=== PATIENT | female | born 1990 | race Hispanic/Latino ===

== ENCOUNTER 2020-01-09 07:25 | Day surgery (SDC) | payer BC ==
[2020-01-04 10:15] LABS: BASOPHILS % (AUTO) 0.5 % (0.0-5.0); EOSINOPHILS % (AUTO) 4.3 % (0.0-8.0); HEMATOCRIT 42.9 % (36-48); LYMPHOCYTES % (AUTO) 21.2 % (21.0-51.0); MEAN CORPUSCULAR HEMOGLOBIN 30.9 pg (27.0-33.0); MEAN CORPUSCULAR VOLUME 90.9 fL (79-99); MONOCYTES % (AUTO) 4.3 % (3.0-13.0); NEUTROPHILS % (AUTO) 69.3 % (40.0-77.0); PLATELET COUNT (AUTO) 227 K/uL (130-400); RED BLOOD CELL COUNT(AUTO) 4.72 MIL/uL (4.00-5.50); RED CELL DISTRIBUTION WIDTH 11.7 % (11.0-15.5); WHITE BLOOD COUNT (AUTO) 9.5 K/uL (4.8-10.8)
[2020-01-04 10:31] LABS: ALBUMIN 4.1 g/dL (3.5-5.0); BILIRUBIN,TOTAL 0.8 mg/dL (0.2-1.0); CREATININE 1.4 mg/dL (0.5-1.5); TOTAL PROTEIN, SERUM 7.7 g/dL (6.0-8.3)
[2020-01-08] MEDS: CEFAZOLIN SODIUM 1 GM VIAL IVP SCH (12:45)
[2020-01-08 13:01] VITALS: BP 152/97
[~2020-01-09] VITALS: Ht 171.4 cm; Wt 105.5 kg
[2020-01-09] VITALS (16 sets, daily range): BP systolic 119–142; BP diastolic 71–88
[~2020-01-09 07:25] MED LIST: CEFAZOLIN SODIUM 1 GM VIAL IVP SCH
[2020-01-09] MEDS ORDERED: LACTATED RINGERS 1000ML 1,000 ML IV ONE (07:37)
[2020-01-09] MEDS ORDERED: BUPIVACAINE/PF 0.5% 30ML VIAL ONE (08:18)
[2020-01-09] MEDS ORDERED: MIDAZOLAM HCL 1 MG/ML 2ML VIAL ONE (09:27)
[2020-01-09] MEDS ORDERED: FENTANYL CITRATE PF 50 MCG/1 ML 5ML AMP IV ONE (09:27)
[2020-01-09] MEDS ORDERED: ONDANSETRON HCL 4 MG/2 ML VIAL ONE (09:28)
[2020-01-09] MEDS ORDERED: ROCURONIUM 10MG/1ML SYR 10 MG/ML ML ONE (09:30)
[2020-01-09] MEDS ORDERED: PROPOFOL 10 MG/ML 20ML VIAL IV ONE (09:30)
[2020-01-09] MEDS: CEFAZOLIN SODIUM 1 GM VIAL IVP SCH (09:38)
[2020-01-09] MEDS ORDERED: NEOSTIGMINE 5MG/5ML SYR IV ONE (10:05)
[2020-01-09] MEDS ORDERED: GLYCOPYRROLATE 1 MG/5 ML SYRINGE ONE (10:05)
[2020-01-09] MEDS ORDERED: EPHEDRINE SULFATE 50 MG/ML AMPULE ONE (10:10)
--- NOTE | 2020-01-09 11:20 | NUR ---
DAY PT ARRIVAL PT IN FROM HOLDING IN O APPARENT DISTRESS DRESSING TO LEFT FLANK CDI.
--- NOTE | 2020-01-09 12:20 | NUR ---
DAY PT DC PT APPEARS IN DISTRESS, DRESSING REMAINS CLEAR AND DRY. TAKEN TO FRONT ER LOBBY IN WHEELCHAIR.
== END 2020-01-09 12:10 | disposition home or self-care (01) ==
LOC: DAH 07:25
PROVIDERS: ATTEND Student in an Organized Health Care Education/Training Program
DX: D17.1 Benign lipomatous neoplasm of skin and subcutaneous tissue of trunk (principal); Z20.828 Contact with and (suspected) exposure to other viral communicable diseases
CPT/HCPCS: 22903; 36415; 80053; 84703; 85025; A4215; A4221; A4222; A4223; A4663; A6260; C9803; J0690; J2250; J2405; J2704; J2710; J3010; J3490 ×3; J7120 ×2; U0003

== ENCOUNTER 2022-05-14 14:31 | Emergency (ER) | payer BC ==
[~2022-05-14] VITALS: Ht 172.7 cm; Wt 104.3 kg
[2022-05-14 14:32] VITALS: BP 166/99
[2022-05-14 16:20] LABS: BASOPHILS % (AUTO) 0.7 % (0.0-5.0); EOSINOPHILS % (AUTO) 6.4 % (0.0-8.0); HEMATOCRIT 42.1 % (36-48); LYMPHOCYTES % (AUTO) 24.4 % (21.0-51.0); MEAN CORPUSCULAR HEMOGLOBIN 29.7 pg (27.0-33.0); MONOCYTES % (AUTO) 7.7 % (3.0-13.0); NEUTROPHILS % (AUTO) 60.6 % (40.0-77.0); PLATELET COUNT (AUTO) 257 K/uL (130-400); RED BLOOD CELL COUNT(AUTO) 4.68 MIL/uL (4.00-5.50); RED CELL DISTRIBUTION WIDTH 12.1 % (11.0-15.5); WHITE BLOOD COUNT (AUTO) 8.9 K/uL (4.8-10.8)
[2022-05-14 16:30] LABS: CREATININE 0.7 mg/dL (0.5-1.5); POTASSIUM 3.3 mmol/L (3.5-5.1)
[2022-05-14] MEDS ORDERED: KETOROLAC 60 MG VIAL (30MG/ML) IM ONE (16:30)
[2022-05-14 16:35] LABS: ALBUMIN 3.9 g/dL (3.5-5.0); TOTAL PROTEIN, SERUM 7.6 g/dL (6.0-8.3)
[2022-05-14 16:39] LABS: APPEARANCE,URINE CLEAR (CLEAR); BILIRUBIN,URINE NEGATIVE (NEGATIVE); COLOR,URINE COLORLESS (YELLOW); GLUCOSE, URINE (UA) NEGATIVE (NEGATIVE); KETONES,URINE NEGATIVE (NEGATIVE); LEUKOCYTE ESTERASE ,URINE NEGATIVE Leu/uL (NEGATIVE); NITRATE,URINE NEGATIVE (NEGATIVE); OCCULT BLOOD,URINE NEGATIVE (NEGATIVE); PROTEIN,URINE NEGATIVE (NEGATIVE); UROBILINOGEN,URINE 0.2 mg/dL (0.2-1.0)
[2022-05-14] MEDS ORDERED: AMOX-426 PO (17:04)
[2022-05-14] MEDS ORDERED: IBUP-2070 PO (17:04)
[2022-05-14] MEDS ORDERED: PHEN118L19 PO (17:04)
[2022-05-14] MEDS ORDERED: ALBU6.7H14 IH (17:04)
[2022-05-14] MEDS ORDERED: METH4TAB3 PO (17:04)
== END 2022-05-14 17:39 | disposition home or self-care (01) ==
LOC: EDH 14:31
DX: J18.9 Pneumonia, unspecified organism (principal); M94.0 Chondrocostal junction syndrome [Tietze]; Z20.822 Contact with and (suspected) exposure to COVID-19
CPT/HCPCS: 99284; 71045; 87635; 84484; 80053; 85025; 87804 ×2; 81003; 81025; 36415; 96372; 93005; C9803

== ENCOUNTER 2023-12-11 20:14 | Emergency (ER) | payer BC ==
[~2023-12-11] VITALS: Ht 172.7 cm; Wt 106.1 kg
[~2023-12-11 20:14] MED LIST changes: +ALBU6.7H14 IH; +AMOX-426 PO; -CEFAZOLIN SODIUM 1 GM VIAL IVP SCH; +IBUP-2070 PO; +METH4TAB3 PO; +PHEN118L19 PO
[2023-12-11 21:11] LABS: APPEARANCE,URINE CLEAR (CLEAR); BILIRUBIN,URINE NEGATIVE (NEGATIVE); COLOR,URINE YELLOW (YELLOW); GLUCOSE, URINE (UA) NEGATIVE (NEGATIVE); KETONES,URINE 5 mg/dL (NEGATIVE); LEUKOCYTE ESTERASE ,URINE NEGATIVE Leu/uL (NEGATIVE); NITRATE,URINE NEGATIVE (NEGATIVE); OCCULT BLOOD,URINE LARGE (NEGATIVE); PROTEIN,URINE 20 mg/dL (NEGATIVE)
[2023-12-11 21:13] LABS: ADD UA MICROSCOPIC YES
[2023-12-11 21:14] LABS: HCG,QUALITATIVE URINE NEGATIVE (NEGATIVE)
[2023-12-11 21:16] LABS: BACTERIA,URINE RARE /HPF (None Seen); MUCUS,URINE RARE LPF (None Seen); SQUAMOUS EPITHELIAL CELL,UR FEW /HPF (0-2); UNCLASSIFIED CRYSTAL 19 /HPF (None Seen)
[2023-12-11] MEDS: TRIAMCINOLONE ACETONIDE 40 MG/ML 1ML VIAL IM ONE (21:36)
[2023-12-11] MEDS: ORPHENADRINE 60MG/2ML IM ONE (21:36)
[2023-12-11 22:11] VITALS: BP 146/88; PULSE 74; RESP 20; TEMP 98.6; O2SAT 97
[2023-12-11] MEDS ORDERED: CYCL10TA16 PO (22:27)
== END 2023-12-11 22:34 | disposition home or self-care (01) ==
LOC: EDH 20:14
DX: G57.00 Lesion of sciatic nerve, unspecified lower limb (principal); G58.8 Other specified mononeuropathies; Z79.899 Other long term (current) drug therapy; Z98.890 Other specified postprocedural states
CPT/HCPCS: 99284; 81001; 81025; 96372 ×2; J3301; J2360